=== PATIENT | female | born 1990 | race Caucasian/White ===

== ENCOUNTER 2018-06-06 20:40 | Emergency (ER) | payer MEDICAID, OTHER ==
[2018-06-06 20:50] VITALS: BP 133/70; TEMP 98.4; BMI 41.1
--- NOTE | 2018-06-06 22:34 | CT ---
EXAM: CT pulmonary angiogram. HISTORY: Left chest pain. Cough. Evaluate for pulmonary embolism. PROCEDURE: After the intravenous injection of contrast contiguous axial CT images of the chest were obtained with multiplanar reformats, MIP images and 3-D reformats. FINDINGS: There is normal enhancement of the pulmonary arteries with no evidence of pulmonary embolis m. The heart is enlarged. The thoracic aorta is normal in appearance. The mediastinum is normal in appearance. There are bilateral ground-glass opacities. There is minimal consolidation in the right middle lobe and lingula. The bones and soft tissues are unremarkable. The adrenal glands are normal i n appearance. There is diffuse fatty infiltration of the liver. Impression: No evidence of pulmonary embolism. Minimal right middle lobe and lingular consolidation consistent with atelectasis and/or pneumonia. Bilateral ground-glass opacities which is a nonspecific finding. The differential diagnosis includes infection and edema. Cardiomegaly. Diffuse fatty infiltration of the liver.
[2018-06-06] MEDS ORDERED: LEVAQUIN PO STA (22:51)
--- NOTE | 2018-06-06 22:55 | ED.PDOC ---
General ED Provider: Dr. BRIE JACOBO-ER Chief Complaint: Cough Stated Complaint: im coughing Time Seen by Physician: 20:45 Mode of Arrival: Walk-In Information Source: Patient Exam Limitations: No limitations [facility] Nursing and Triage Documentation Reviewed and Agree: Yes Does patient meet sepsis criteria?: No System Inflammatory Response Syndrome: Not Applicable Sepsis Protocol: For patient's 13 years and over: Temp is 96.8 and below OR 101 and greater Pulse >90 BPM Resp >20/minute Acutely Altered Mental Status Are patient's symptoms suggestive of a new infection, such as: -Pneumonia -Skin, Soft Tissue -Endocarditis -UTI -Bone, Joint Infection -Implantable Device -Acute Abdominal Infection -Wound Infection -Meningitis -Blood Stream Catheter Infection -Unknown Respiratory Complaint Exam - Respiratory Complaint/Exam Onset/Duration: 3 days Symptoms Are: Still present Initial Severity: Mild Current Severity: Mild Character: Reports: Non-productive cough Aggravating: Reports: URI Associated Signs and Symptoms: Reports: Pleuritic chest pain, URI. Denies: Rapid breathing, Dyspnea, Fever, Chills, Chest pain Home Oxygen Use: No Recent Stress Test: No Recent Echo/LV Function: No Current Antibiotic Use: No Inadequate Respiratory Effort: No Dysphagia Present: No Stridor Present: No JVD Present: No Accessory Muscle Use: No Retractions: Not Present Diminished Breath Sounds: No Sinus Tenderness: None Grunting Respirations: No Kussmaul Respirations: No Differential Diagnoses: Pneumonia, Bronchitis Review of Systems - Review Of Systems Constitutional: Reports: No symptoms Eyes: Reports: No symptoms Ears, Nose, Mouth, Throat: Reports: No symptoms Respiratory: Reports: Cough Cardiac: Reports: No symptoms GI: Reports: No symptoms : Reports: No symptoms Musculoskeletal: Reports: No symptoms Skin: Reports: No symptoms Neurological: Reports: No symptoms Endocrine: Reports: No symptoms Hematologic/Lymphatic: Reports: No symptoms All Other Systems: Reviewed and Negative Past Medical History - Past Medical History Previously Healthy: Yes Endocrine: Reports: None Cardiovascular: Reports: None Respiratory: Reports: None Hematological: Reports: None Gastrointestinal: Reports: None Genitourinary: Reports: None Neuro/Psych: Reports: None Musculoskeletal: Reports: None Cancer: Reports: None Last Menstrual Period: 5-9-18 - Surgical History General Surgical History: Reports: Unknown - Family History Family History: Reports: Unknown - Social History Smoking Status: Never smoker Hx Substance Use: No Alcohol Screening: None - Immunizations Tetanus Shot up to Date: Yes Physical Exam - Physical Exam Appearance: Well-appearing, No pain distress, Well-nourished Pain Distress: Mild Eyes: BABATUNDE ENT: Ears normal Neck: Supple Respiratory: Airway patent, Breath sounds clear, Breath sounds equal, Respirations nonlabored Cardiovascular: RRR GI/: Soft, Nontender, No masses, Bowel sounds normal, No Organomegaly Musculoskeletal: Normal strength, ROM intact, No edema, No calf tenderness Skin: Warm, Dry, Normal color Neurological: Sensation intact, Motor intact, Reflexes intact, Cranial nerves intact, Alert, Oriented Psychiatric: Affect appropriate, Mood appropriate Interpretation - Radiology Interpretation Radiology Interpretation By: Radiologist Radiology Results: Positive Exam Interpreted: CT Scan Critical Care Note - Critical Care Note Total Time (mins): 0 Course - Course Hematology/Chemistry: 06/06/18 21:06 06/06/18 21:06 Orders, Labs, Meds: Lab Review 06/06/18 06/06/18 06/06/18 21:06 21:06 21:06 WBC 10.14 RBC 5.18 Hgb 13.9 Hct 42.9 MCV 82.8 MCH 26.8 L MCHC 32.4 RDW Coeff of Emily 14.5 Plt Count 242 Immature Gran % (Auto) 0.2 Neut % (Auto) 56.2 Lymph % (Auto) 36.5 [place] % (Auto) 6.3 Eos % (Auto) 0.5 Baso % (Auto) 0.3 Immature Gran # (Auto) 0.0 Neut # (Auto) 5.7 Lymph # (Auto) 3.7 H [place] # (Auto) 0.6 Eos # (Auto) 0.1 Baso # (Auto) 0.0 Sodium 137 Potassium 4.2 Chloride 105 Carbon Dioxide 22 Anion Gap 14.2 BUN 12 Creatinine 0.64 Estimated GFR (MDRD) 112.00 BUN/Creatinine Ratio 18.75 Glucose 91 Calcium 9.4 Total Bilirubin 1.1 AST 108 H ALT 187 H Alkaline Phosphatase 63 Total Protein 8.1 Albumin 3.9 Globulin 4.2 Albumin/Globulin Ratio 0.93 Serum , Qual Negative Orders Category Date Time Status NPO REMINDER: IMAGING ONCE CARE 06/06/18 20:52 Active ED PORT TRAFFIC MANAGER APPLIED .ONCE EMERGENCY 06/06/18 20:52 Active IV [ED IV/MEDIPORT/POWERPORT] .ONCE EMERGENCY 06/06/18 20:52 Active BLOOD CULTURE (ED ONLY) Stat LAB 06/06/18 21:06 Received CBC W/ AUTO DIFF Stat LAB 06/06/18 21:06 Completed COMPREHENSIVE METABOLIC PANEL Stat LAB 06/06/18 21:06 Completed SERUM Stat LAB 06/06/18 21:06 Completed 0.9 % Sodium Chloride [Saline Flush] MEDS 06/06/18 20:52 Ordered 1 syr IVF PRN PRN Levofloxacin [Levaquin] MEDS 06/06/18 22:51 Stat 500 mg PO ONCE STA CT CHEST PE PROTOCOL Stat RADS 06/06/18 20:52 Completed Medications Generic Name Dose Route Start Last Admin Trade Name Freq PRN Reason Stop Dose Admin Levofloxacin 500 mg 06/06/18 22:51 Levaquin PO 06/06/18 22:52 ONCE STA Sodium Chloride 1 syr 06/06/18 20:52 Saline Flush IVF PRN PRN To flush IV Vital Signs: Temp Pulse Resp BP Pulse Ox 06/06/18 20:41 98.4 F 102 H 20 133/70 97 Departure - Departure Time of Disposition: 22:54 Disposition: HOME SELF-CARE Discharge Problem: Pneumonia Qualifiers: Pneumonia type: due to unspecified organism Laterality: right Lung location: unspecified part of lung Qualified Code(s): J18.9 - Pneumonia, unspecified organism Instructions: Pneumonitis (ED) Condition: Good Pt referred to PMD for follow-up: Yes IPMP verified?: No Additional Instructions: levaquin 500mg #7--medrol dose pack---f/u with pcp this week Allergies/Adverse Reactions: Allergies No Known Allergies Allergy (Verified 06/06/18 20:47) Disposition Discussed With: Patient
== END 2018-06-06 23:04 | disposition home or self-care (01) ==
LOC: ED 20:40
DX: J18.9 Pneumonia, unspecified organism (principal)
CPT/HCPCS: 36415; 80053; 84703; 85025; 87040; 99283

== ENCOUNTER 2018-08-30 11:44 | Outpatient (CLI) | END 2018-08-30 11:45 | disposition home or self-care (01) | LOC: FCC-LAB 11:44 | PROVIDERS: ATTEND Family Medicine | DX: J02.9 Acute pharyngitis, unspecified (principal); R50.9 Fever, unspecified | CPT/HCPCS: 87651 ==